=== PATIENT | female | born 2005 | race Hispanic/Latino ===

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

== ENCOUNTER 2024-01-11 14:43 | Emergency (ER) | payer OTHER, SELFPAY ==
[2024-01-11] MEDS ORDERED: ONDANSETRON 4 MG (ODT) TAB ONE (15:28)
[2024-01-11 16:06] LABS: SARS-CoV-2 Antigen CONTROL BLUE LINE VIS/BG OK; SARS-CoV-2 Antigen Rapid Res Negative (Negative)
--- NOTE | 2024-01-11 17:58 | EDPHYS ---
Physician Documentation [facility] Name: Nola Cast Age: 18 yrs Sex: Female : 2005 Arrival Date: 01/11/2024 Time: 14:43 Bed 17 Private MD: ED Physician Graham Johnston HPI: 01/10 15:21 This 18 yrs old Female presents to ER via Unassigned with complaints of kb Painful Cough, Flu Symptoms, Shortness Of Breath. 15:21 Pt is a 18 year old female who presents for n/v/d, cough, congestion, headache, kb malaise, bodyaches for 3 days. Denies sick contacts. . Historical: - Allergies: 15:22 No Known Allergies; kb - Home Meds: 15:22 None [Active]; kb - PMHx: 15:22 None; kb - PSHx: 15:22 None; kb - Immunization history:: Adult Immunizations unknown. - Infectious Disease History:: Denies. - Social history:: Smoking status: Patient denies any tobacco usage or history of. ROS: 15:23 Constitutional: As per HPI kb Exam: 15:23 Constitutional: This is a well developed, well nourished patient who is awake, alert, kb and in no acute distress. Head/Face: Normocephalic, atraumatic. ENT: Moist Mucous membranes Cardiovascular: Regular rate Respiratory: Respirations even and unlabored. No increased work of breathing. Talking in full sentences Abdomen/GI: Soft, non-tender. No distention Skin: Warm, dry with normal turgor. Normal color. MS/ Extremity: Pulses equal, no cyanosis. Neurovascular intact. Full, normal range of motion. Neuro: Awake and alert, GCS 15, oriented to person, place, time, and situation. Vital Signs: 15:28 BP 115 / 75; Pulse 90; Resp 17; Temp 98.1(O); Pulse Ox 100% on R/A; Weight 104.33 kg; ss Height 5 ft. 4 in. ; Pain 7/10; 18:00 BP 114 / 71; Pulse 79; Resp 16; Temp 98; Pulse Ox 100% ; db 15:28 Body Mass Index 39.48 (104.33 kg, 162.56 cm) - Percentile 98.3 % ss 15:28 Pain Scale: Adult ss MDM: 15:01 Medical Screening Exam initiated kb 15:23 Data reviewed: vital signs, nurses notes. kb 17:57 Differential Diagnosis: Influenza Upper Respiratory Infection Other covid, strep, viral kb infection. I considered the following discharge prescriptions or medication management in the emergency department I discussed and recommended Over The Counter medications, Antibiotics: At this time antibiotics are not recommended, Antivirals: At this time, antivirals are not recommended. Counseling: I had a detailed discussion with the patient and/or guardian regarding the historical points, exam findings, and any diagnostic results supporting the discharge/admit diagnosis, lab results, the need for outpatient follow up, a family practitioner, to return to the emergency department if symptoms worsen or persist or if there are any questions or concerns that arise at home. 01/10 15:26 Order name: Flu; Complete Time: 16:14 kb 01/10 15:26 Order name: SARS-COV-2 Antigen Rapid; Complete Time: 16:14 kb 01/10 15:26 Order name: Strep kb 01/10 16:10 Order name: Throat Culture EDMS Administered Medications: 15:35 Drug: Ondansetron PO 4 mg PO once Route: PO; ss 18:22 Follow up: Response: No adverse reaction db Disposition Summary: 01/11/24 17:58 Discharge Ordered Notes: Location: Home kb Condition: Stable kb Diagnosis - Viral infection, unspecified kb Followup: kb - With: Emergency Department - When: As needed - Reason: Worsening of condition Followup: kb - With: Private Physician - When: 2 - 3 days - Reason: Recheck today's complaints, Continuance of care, Re-evaluation by your physician Discharge Instructions: - Discharge Summary Sheet kb - Viral Respiratory Infection, [id number] kb - Viral Illness, Adult kb Forms: - Work release form kb - Medication Reconciliation Form kb - Antibiotic Education kb - Prescription Opioid Use kb - Patient Portal Instructions kb - Leadership Thank You Letter kb Prescriptions: - Zofran 4 mg Oral tablet - take 1 tablet ORAL route every 6 hours As needed; 12 tablet; Refills: 0, kb Product Selection Permitted Signatures: Dispatcher [employer] EDDelfina Bernardo FNP-C FNP-Ckb Blanchard, Shelby, RN RN ss Philly Ramirez RN RN db
--- NOTE | 2024-01-11 17:58 | ER ---
Nurse's Notes [facility] Name: Nola Cast Age: 18 yrs Sex: Female : 2005 Arrival Date: 01/11/2024 Time: 14:43 Bed 17 Private MD: Diagnosis: Viral infection, unspecified Presentation: 01/10 15:28 Chief complaint: Patient states: cough/ congestion that began 3 days ago. Coronavirus ss screen: Client denies travel out of the [place] in the last 14 days. Ebola Screen: Patient denies exposure to infectious person. Patient denies travel to an Ebola-affected area in the 21 days before illness onset. Initial Sepsis Screen: Does the patient meet any 2 criteria? No. Patient's initial sepsis screen is negative. Does the patient have a suspected source of infection? No. Patient's initial sepsis screen is negative. Risk Assessment: Do you want to hurt yourself or someone else? Patient reports no desire to harm self or others. Onset of symptoms was January 10, 2024. 15:28 Method Of Arrival: Ambulatory ss 15:28 Acuity: MARK 3 ss Historical: - Allergies: 15:22 No Known Allergies; kb - Home Meds: 15:22 None [Active]; kb - PMHx: 15:22 None; kb - PSHx: 15:22 None; kb - Immunization history:: Adult Immunizations unknown. - Infectious Disease History:: Denies. - Social history:: Smoking status: Patient denies any tobacco usage or history of. Screenin:00 [facility] ED Fall Risk Assessment (Adult) History of falling in the last 3 months, db including since admission No falls in past 3 months (0 pts) Confusion or Disorientation No (0 pts) Intoxicated or Sedated No (0 pts) Impaired Gait No (0 pts) Mobility Assist Device Used No (0 pt) Altered Elimination No (0 pt) Score/Fall Risk Level 0 - 2 = Low Risk Oriented to surroundings, Maintained a safe environment. Abuse screen: Denies threats or abuse. Denies injuries from another. Nutritional screening: No deficits noted. Tuberculosis screening: No symptoms or risk factors identified. Assessment: 18:00 Reassessment: Patient appears in no apparent distress at this time. Patient and/or db family updated on plan of care and expected duration. Pain level reassessed. Patient is alert, oriented x 3, equal unlabored respirations, skin warm/dry/pink. General: Appears in no apparent distress. comfortable, Behavior is calm, cooperative. Pain: Denies pain. Neuro: Level of Consciousness is awake, alert, obeys commands, Oriented to person, place, time, situation. Cardiovascular: Rhythm is regular. Respiratory: Reports cough that is Airway is patent Respiratory effort is even, unlabored, Respiratory pattern is regular, symmetrical, Breath sounds are clear. Vital Signs: 15:28 BP 115 / 75; Pulse 90; Resp 17; Temp 98.1(O); Pulse Ox 100% on R/A; Weight 104.33 kg; ss Height 5 ft. 4 in. ; Pain 7/10; 18:00 BP 114 / 71; Pulse 79; Resp 16; Temp 98; Pulse Ox 100% ; db 15:28 Body Mass Index 39.48 (104.33 kg, 162.56 cm) - Percentile 98.3 % ss 15:28 Pain Scale: Adult ss ED Course: 14:46 Patient arrived in ED. im 15:01 Delfina Cardona FNP-C is PHCP. kb 15:01 Graham Johnston MD is Attending Physician. kb 15:28 Arm band placed on right wrist. ss 15:30 Triage completed. ss 15:35 Strep Sent. ss 15:35 SARS-COV-2 Antigen Rapid Sent. ss 15:35 Flu Sent. ss 17:40 Philly Ramirez, RN is Primary Nurse. db 18:00 Patient has correct armband on for positive identification. Bed in low position. Call db light in reach. Side rails up X 1. Provided Education on: DISCHARGE AND FOLLOWUP. Pulse ox on. NIBP on. Warm blanket given. Pillow given. 18:00 No provider procedures requiring assistance completed. Patient did not have IV access db during this emergency room visit. Administered Medications: 15:35 Drug: Ondansetron PO 4 mg PO once Route: PO; ss 18:22 Follow up: Response: No adverse reaction db Medication: 18:24 VIS not applicable for this client. db Outcome: 17:58 Discharge ordered by . kb 18:00 Discharged to home ambulatory, db 18:00 Condition: stable 18:00 Discharge instructions given to patient, Instructed on discharge instructions, follow up and referral plans. Prescriptions given X 1, 18:25 Patient left the ED. db Signatures: Delfina Cardona, Lilliam Ortiz, RN RN ss Philly Ramirez RN RN db Jyoti May
[2024-01-11 20:12] VITALS: O2SAT 100
[2024-01-11 20:13] VITALS: BP 114/71; TEMP 98
== END 2024-01-11 18:25 | disposition home or self-care (01) ==
LOC: ER 14:43
DX: B34.9 Viral infection, unspecified (principal); Z11.52 Encounter for screening for COVID-19
CPT/HCPCS: 36415; 87070; 87081; 87804; 87811; 99284; Q0162